=== PATIENT | male | born 1995 | race Caucasian/White ===

== ENCOUNTER 2020-09-07 15:49 | Outpatient (REF) | payer BC, SELFPAY | END 2020-09-07 15:50 | disposition home or self-care (01) | LOC: HO.LAB 15:49 | PROVIDERS: Visit Provider Internal Medicine | DX: Z20.828 Contact with and (suspected) exposure to other viral communicable diseases (principal) | CPT/HCPCS: 36415; C9803; U0003 ==

== ENCOUNTER 2021-05-02 19:43 | Inpatient (IN) | payer BC, SELFPAY ==
--- NOTE | ~2021-05-02 | US_ITS ---
EXAMINATION: US ABDOMEN LIMITED CLINICAL INFORMATION: This is a 26-year-old male with right upper quadrant pain.. COMPARISON: None TECHNIQUE: Real-time imaging of the right upper quadrant abdominal viscera. The study was somewhat limited due to the patient's body habitus and the need to perform intercostal imaging. FINDINGS: PANCREAS: The head and body appear within normal limits without ductal dilatation. The tail is obscured by overlying bowel gas. LIVER: Normal. The liver is normal in size. The liver contour is normal. Parenchymal echogenicity is normal. No focal hepatic lesion. There is no intrahepatic biliary duct dilatation seen. GALLBLADDER: Normal. The gallbladder is physiologically distended without evidence of stones, sludge, polyps or pericholecystic fluid. There is borderline gallbladder wall thickness measuring 0.3 cm. There is no tenderness to direct palpation over the gallbladder. COMMON BILE DUCT: Normal in caliber measuring 0.2 cm in diameter. RIGHT KIDNEY: Normal. There appears to be mild hydronephrosis. No renal calculi or focal parenchymal lesions. The kidney measures 10.5 cm in maximum dimension. FREE FLUID: None. US/US abdomen limited IMPRESSION: 1. Mild right hydronephrosis. 2. Borderline thickening of the gallbladder wall without evidence of tenderness or dilatation of the gallbladder.
--- NOTE | ~2021-05-02 | XR_ITS ---
EXAMINATION: XR CHEST CLINICAL INFORMATION: Upper abdominal pain COMPARISON: None TECHNIQUE: Frontal view of the chest was obtained. FINDINGS: No significant abnormality is noted involving the heart, lungs, mediastinum, bony thorax or soft tissues. XR/XR chest 1V IMPRESSION: Unremarkable examination.
--- NOTE | ~2021-05-02 | CT_ITS ---
EXAMINATION: CT ABDOMEN AND PELVIS WITH CONTRAST CLINICAL INFORMATION: Question pancreatitis COMPARISON: None TECHNIQUE: Multidetector volumetric images were obtained from the superior aspect of the liver through the pubic symphysis following administration 85 mL of Omnipaque 350 intravenous contrast. Sagittal and coronal reformatted images were obtained on the technologist's workstation. Oral contrast: Yes This CT examination was performed using dose optimization techniques as appropriate, variously including the following: *Automated exposure control *Adjustment of mA and/or kV according to patient size (this includes techniques or standardized protocols for targeted exams where dose is matched to indication/reason for exam; i.e. extremities or head) *Use of iterative reconstruction technique DLP: 555 mGy-cm FINDINGS: LUNG BASES: The visualized lung bases are unremarkable. LIVER, GALLBLADDER, AND BILIARY TREE: The liver is normal in size, shape, and attenuation. No focal hepatic lesion or biliary ductal dilatation is present. The gallbladder is unremarkable with no evidence of radiopaque gallstones, gallbladder wall thickening, or obvious pericholecystic inflammatory changes. PANCREAS: Unremarkable. SPLEEN: Unremarkable. ADRENAL GLANDS: Unremarkable. KIDNEYS AND URETERS: The kidneys are normal in size, shape, and attenuation. No hydronephrosis, hydroureter, or calculi seen. No perinephric stranding. BLADDER: Unremarkable. GASTROINTESTINAL TRACT: There is diverticulosis of the colon. No evidence of diverticulitis is seen. The small and large bowel are otherwise unremarkable. The appendix is unremarkable. ABDOMINAL WALL: No significant hernia is appreciated. LYMPH NODES: There are enlarged small bowel mesentery lymph nodes in the right lower quadrant. Largest lymph node measures 2 x 1.7 cm axial image 53 series 3. No other lymphadenopathy is seen. There is no ascites. VASCULAR: Unremarkable. PELVIC VISCERA: Unremarkable. OSSEOUS STRUCTURES: Unremarkable. CT/CT abdomen pelvis w con IMPRESSION: Normal-appearing pancreas. Diverticulosis of the colon. No evidence of diverticulitis. Enlarged small bowel mesentery lymph nodes in the right lower quadrant. Infectious, inflammatory and neoplastic process should be considered.
--- NOTE | ~2021-05-02 | NM_ITS ---
Indication: Abdominal pain mild gallbladder wall thickening EXAMINATION: HIDA scan Ensure is not given.. 5 mCi technetium mebrofenin. Images obtained over the upper abdomen for 85 minutes. Uptake by liver is within normal limits. There is some retention in the liver on the delayed imaging. There is ductal activity by 19 minutes. Bowel activity by 30 minutes. Gallbladder activity by 50 minutes. Impression; Gallbladder visualization is seen by 50 minutes. Therefore no scintigraphic evidence for cystic duct obstruction There is some retention of the agent in the liver on the delayed imaging. An element of hepatocellular dysfunction cannot be excluded
[2021-05-02 20:00] VITALS: BP 159/78; PULSE 86; RESP 16; TEMP 36.7; O2SAT 98; BMI 33.2
--- NOTE | 2021-05-02 21:09 | ED.ABDPAIN ---
HPI - Abdominal Pain General Chief Complaint: Abdominal Pain Stated Complaint: upper abd pain Time Seen by Provider: 05/02/21 22:59 Source: patient Mode of arrival: ambulatory Limitations: no limitations History of Present Illness HPI narrative: 26-year-old male with no significant past medical history presents with 4 days of severe abdominal pain to the left upper quadrant radiating to the epigastric and right upper quadrant to the mid of his back accompanied with nausea. He does report binge drinking approximately 4 days ago, had 6 or more drinks for several days in a row. He does not report any alcohol withdrawal symptoms, and denies illicit drug use. Does not report any medical conditions, denies diabetes, heart disease, and hyperlipidemia. Patient denies chest pain or pressure, palpitations, shortness breath, abdominal distention, dysuria, hematuria, diarrhea, constipation, and edema. MD elicited complaint: abdominal pain Pertinent past history: none Onset (ago): day(s) (4) Pain Consistency: constant Location: epigastric, LUQ and RUQ Severity: severe Pain scale (0-10): 9 Quality: stabbing and aching Radiation: back Exacerbating factors: eating and movement Relieving factors: other (Pepto) Associated symptoms: nausea Treatments prior to arrival: antacids Related Data Home Medications Medication Instructions Recorded Confirmed No Known Home Meds 05/02/21 05/02/21 Allergies Allergy/AdvReac Type Severity Reaction Status Date / Time No Known Allergies Allergy Verified 05/02/21 23:11 [No Known Allergies*] Review of Systems Review of Systems Constitutional: No Weight loss, No Fever, No Chills, No Night Sweats, No Fatigue, No Malaise ENT/Mouth: No Hearing loss, No Ear Pain, No Nasal Congestion, No Sinus Pain, No Hoarseness, No sore throat, No Rhinorrhea, No Swallowing Difficulty Eyes: No Eye Pain, No Swelling, No Redness, No Foreign Body, No Discharge, No Vision Changes Cardiovascular: No Chest Pain, No SOB, No Dyspnea on Exertion, No Orthopnea, No Edema, No Palpitations Respiratory: No Cough, No Sputum, No Wheezing, No Smoke Exposure, No Dyspnea Gastrointestinal: Positive Nausea, no Vomiting, no Diarrhea, positive abdominal Pain, No Hematochezia, No Melena Genitourinary: no irregular bleeding, No Dysuria, No Urinary Frequency, No Hematuria, No Urinary Incontinence, No Urgency, No Flank Pain, No Urinary Flow Changes, No Hesitancy Musculoskeletal: No joint pain, No Myalgias, No Joint Swelling Skin: No Skin Lesions, No rash Neuro: No Weakness, No Numbness, No Paresthesias, No Loss of Consciousness, No Dizziness, No Headache Psych: No Anxiety/Panic, No Depression, No SI/HI/AH/VH, No Social Issues Heme/Lymph: No Bruising, No Bleeding,No Lymphadenopathy Endocrine: No Polyuria, No Polydipsia, No Temperature Intolerance Yes all other systems are reviewed and are negative Physical Exam Vital Signs: Vital Signs: Last Vital Signs Temp 98.1 F 05/02/21 23:37 Pulse 76 05/02/21 23:37 Resp 15 05/03/21 00:06 BP 139/81 05/02/21 23:37 Pulse Ox 98 05/02/21 23:37 Body Mass Index 33.2 Appearance: Alert. Oriented X3. Moderate distress. Eyes: Pupils equal, round and reactive to light. Sclera nonicteric. ENT: Pharynx normal. Moist mucous membranes. Neck: Normal inspection. Neck supple. No cervical lymphadenopathy. CVS: Normal heart rate and rhythm. Pulses normal. Respiratory: No respiratory distress. Breath sounds normal. Abdomen: Soft and tender to the left upper quadrant, epigastric and right upper quadrant, greater on the left than the right. Skin: Skin warm and dry. Normal skin color. Normal skin turgor. Extremities: No lower extremity edema. Gait well balanced well coordinated. Moves all extremities against resistance. Neuro: No motor deficit. No sensory deficit. Cranial nerves 2-12 intact. Course Course Course Narrative: 26-year-old male presents with 4 days of left upper epigastric and right upper quadrant abdominal pain radiating to the midback. Does report some binge drinking prior to the pain. Pain increases with food, gets better with Pepto. Does not report any fevers or chills, physical exam positive for [place] sign, will order abdominal ultrasound, labs. Patient will be NPO. Will give pain management, Zofran, and fluid resuscitation. 10:30 p.m. labs indicate pancreatitis, suspected to be alcohol induced. Discussion with patient regarding plan for admission. Discussed with hospitalist who agrees to admit. Consultations Consultation #1: luca Time: 22:35 [facility] - Abdominal Pain Differential Diagnosis Differential diagnosis: Likely abdominal pain, acute appendicitis, gastroenteritis, gastritis and pancreatitis Medical Records Attestation: I reviewed the patient's medical records. Lab Data Attestation: I reviewed the patient's lab results. Result diagrams: 05/02/21 21:33 05/02/21 21:33 Labs: Lab Results 05/02/21 05/02/21 Range/Units 21:33 21:33 WBC 14.1 H (4.8-10.8) X10*3/uL RBC 5.02 (4.60-5.80) X10*6/uL Hgb 15.5 (14.0-18.0) g/dl Hct 42.6 (42-52) % MCV 84.9 (80-98) fL MCH 30.9 (27.0-33.0) pg MCHC 36.4 H (31.0-36.0) g/dl RDW 11.6 (11.0-16.0) % Plt Count 244 (160-400) X10*3/uL MPV 10.0 (9.4-12.4) fL Immature Gran % (Auto) 0.3 (0.0-0.4) % Neut % (Auto) 76.0 H (45-73) % Lymph % (Auto) 11.6 L (20-40) % [place] % (Auto) 9.9 (2-11) % Eos % (Auto) 1.9 (0-4) % Baso % (Auto) 0.3 (0-2) % Lymph # (Auto) 1.6 (1.2-4.9) X10*3/uL [place] # (Auto) 1.4 H (0.1-1.2) X10*3/uL Eos # (Auto) 0.3 (0.0-0.4) X10*3/uL Baso # (Auto) 0.0 (0.0-0.2) X10*3/uL Abs Immat Gran (auto) 0.04 H (0.00-0.03) X10*3/uL Absolute Neuts (auto) 10.7 H (2.0-8.3) X10*3/uL Absolute Nucleated RBC 0.000 (0.0-0.012) X10*3/uL Nucleated RBC % (auto) 0.0 (0.0-0.2) /100WBC Sodium 138 (135-145) mmol/L Potassium 3.7 (3.3-5.1) mmol/L Chloride 103 (96-108) mmol/L Carbon Dioxide 25 (22-29) mmol/L Anion Gap 14 (12-20) BUN 5 L (9-16) mg/dL Creatinine 0.79 (0.5-1.4) mg/dL Estim Creat Clear Calc 163.9 Estimated GFR > 60 Random Glucose 101 (60-115) mg/dL Calcium 9.6 (8.4-10.2) mg/dL Total Bilirubin 0.6 (0.0-1.0) mg/dL Direct Bilirubin 0.2 (0.0-0.5) mg/dL AST 17 (5-37) U/L ALT 28 (0-40) U/L Alkaline Phosphatase 115 (39-117) U/L Total Protein 7.5 (6.5-8.0) g/dL Albumin 4.5 (3.5-5.0) g/dL Triglycerides 87 mg/dL Lipase 1288 H (8-78) U/L Imaging Data Abdominal ultrasound: Attestation: I personally reviewed and interpreted this imaging study as follows: Radiologist's impression: EXAMINATION: US ABDOMEN LIMITED CLINICAL INFORMATION: This is a 26-year-old male with right upper quadrant pain.. COMPARISON: None TECHNIQUE: Real-time imaging of the right upper quadrant abdominal viscera. The study was somewhat limited due to the patient's body habitus and the need to perform intercostal imaging. FINDINGS: PANCREAS: The head and body appear within normal limits without ductal dilatation. The tail is obscured by overlying bowel gas. LIVER: Normal. The liver is normal in size. The liver contour is normal. Parenchymal echogenicity is normal. No focal hepatic lesion. There is no intrahepatic biliary duct dilatation seen. GALLBLADDER: Normal. The gallbladder is physiologically distended without evidence of stones, sludge, polyps or pericholecystic fluid. There is borderline gallbladder wall thickness measuring 0.3 cm. There is no tenderness to direct palpation over the gallbladder. COMMON BILE DUCT: Normal in caliber measuring 0.2 cm in diameter. RIGHT KIDNEY: Normal. There appears to be mild hydronephrosis. No renal calculi or focal parenchymal lesions. The kidney measures 10.5 cm in maximum dimension. FREE FLUID: None. US/US abdomen limited IMPRESSION: ? 1. Mild right hydronephrosis. ? ? 2. Borderline thickening of the gallbladder wall without evidence of tenderness or dilatation of the gallbladder. Chest x-ray: Attestation: I personally reviewed and interpreted this imaging study as follows: Radiologist's impression: EXAMINATION: XR CHEST CLINICAL INFORMATION: Upper abdominal pain COMPARISON: None TECHNIQUE: Frontal view of the chest was obtained. FINDINGS: No significant abnormality is noted involving the heart, lungs, mediastinum, bony thorax or soft tissues. XR/XR chest 1V IMPRESSION: Unremarkable examination. ECG Data Attestation: I personally reviewed and interpreted this ECG as follows: ECG interpretation date: 05/02/21 ECG interpretation time: 21:11 Prior ECG tracings: available for review Interpretation: Vent. Rate : 070 BPM ? ? Atrial Rate : 070 BPM ?? P-R Int : 144 ms? QRS Dur : 100 ms ? ? QT Int : 386 ms ? ? ? P-R-T Axes : 041 047 016 degrees ?? QTc Int : 416 ms ? Normal sinus rhythm with sinus arrhythmia Normal ECG When compared with ECG of 21-AUG-2009 10:09, T wave amplitude has decreased in Anterior leads Critical Care Time Critical Care Time Critical Care Time: Yes Total Critical Care Time: 45 Attestation: I have personally provided critical care time exclusive of time spent on separately billable procedures. Time includes review of laboratory data, radiology results, discussion with consultants, and monitoring for potential decompensation. Interventions were performed as documented. Discharge Plan Discharge Clinical Impression: Pancreatitis Qualifiers: Chronicity: acute Pancreatitis type: alcohol induced Acute pancreatitis complication: unspecified Qualified Code(s): K85.20 - Alcohol induced acute pancreatitis without necrosis or infection Patient Disposition: Admitted As Inpatient [facility] Past Medical History Attestation statement: The following information was validated with the patient. Source: old records reviewed Medical History (Updated 05/02/21 @ 22:36 by Mary Morrow NP) Kidney failure, acute Vertigo Social History Social History Alcohol intake: current Alcohol intake frequency: a few times a week Alcohol type: beer Patient Tobacco Use Status: Never used Tobacco Use of substances other than those prescribed or required for medical reasons: Yes Substance Use Type: Marijuana Advance Directives: No
--- NOTE | 2021-05-02 21:11 | ECG_ITS ---
Test Reason : ABDOMINAL PAIN Blood Pressure : / mmHG Vent. Rate : 070 BPM Atrial Rate : 070 BPM P-R Int : 144 ms QRS Dur : 100 ms QT Int : 386 ms P-R-T Axes : 041 047 016 degrees QTc Int : 416 ms Normal sinus rhythm with sinus arrhythmia Normal ECG When compared with ECG of 21-AUG-2009 10:09, T wave amplitude has decreased in Anterior leads Referred By: Mary Morrow Electronically Signed By:ISIDRO GOULD
[2021-05-02 21:39] LABS: MANUAL DIFF FLAG NO
[2021-05-02 21:40] LABS: Basophils Percent Auto 0.3 % (0-2); Eosinophils Absolute Auto 0.3 X10*3/uL (0.0-0.4); Eosinophils Percent Auto 1.9 % (0-4); Hematocrit 42.6 % (42-52); Hemoglobin 15.5 g/dl (14.0-18.0); Imm Gran Abs Auto 0.04 X10*3/uL (0.00-0.03); Imm Gran Pct Auto 0.3 % (0.0-0.4); Lymphocytes Absolute Auto 1.6 X10*3/uL (1.2-4.9); Lymphocytes Percent Auto 11.6 % (20-40); Mean Corpuscular HGB Conc 36.4 g/dl (31.0-36.0); Mean Corpuscular Hemoglobin 30.9 pg (27.0-33.0); Mean Corpuscular Volume 84.9 fL (80-98); Monocytes Absolute Auto 1.4 X10*3/uL (0.1-1.2); Monocytes Percent Auto 9.9 % (2-11); Neutrophils Absolute Auto 10.7 X10*3/uL (2.0-8.3); Platelet Count 244 X10*3/uL (160-400); Red Blood Count 5.02 X10*6/uL (4.60-5.80); Red Cell Distribution Width 11.6 % (11.0-16.0); White Blood Count 14.1 X10*3/uL (4.8-10.8)
[2021-05-02 22:08] LABS: Alanine Aminotransferase 28 U/L (0-40); Albumin Level 4.5 g/dL (3.5-5.0); Alkaline Phosphatase 115 U/L (39-117); Anion Gap 14 (12-20); Aspartate Amino Transferase 17 U/L (5-37); Bilirubin Direct 0.2 mg/dL (0.0-0.5); Bilirubin Total 0.6 mg/dL (0.0-1.0); Blood Urea Nitrogen 5 mg/dL (9-16); Calcium 9.6 mg/dL (8.4-10.2); Carbon Dioxide 25 mmol/L (22-29); Chloride 103 mmol/L (96-108); Creatinine Clr Calc Pharmacy 163.9; Estimated Glomerular Filt Rate > 60; Glucose Random 101 mg/dL (60-115); Potassium 3.7 mmol/L (3.3-5.1); Sodium 138 mmol/L (135-145); Total Protein 7.5 g/dL (6.5-8.0)
[2021-05-02 22:21] LABS: Lipase 1288 U/L (8-78)
--- NOTE | 2021-05-02 22:37 | PM.IMHP ---
History of Present Illness Date of Service: 05/02/21 Chief Complaint: Abdominal pain 26-year-old male with a past medical history of alcohol abuse presented to the hospital with a chief complaint of abdominal pain. Patient reported that over the past 4 days has been having abdominal pain located in the epigastrium and the right-sided; radiating to the back; denies any fever chills cough. Assessment with nausea and vomiting. Denies any blood in the vomitus. Denies any diarrhea. Denies any chest pain palpitations lightheadedness or dizziness. Review of all other systems is negative except mentioned above ER course: Per ER team patient's exam noted to have tenderness in the epigastric; no guarding no rigidity. Abdominal ultrasound showed mild gallbladder wall thickening; no fever. Noted to have mild leukocytosis. Lipase elevated to 1000. Given IV fluids and pain medications. Admitted to the hospital for possible pancreatitis. [facility] Medical History (Updated 05/02/21 @ 22:36 by Mary Morrow NP) Kidney failure, acute Vertigo Social History Alcohol intake: current Alcohol intake frequency: a few times a week Alcohol type: beer Patient Tobacco Use Status: Never used Tobacco Use of substances other than those prescribed or required for medical reasons: Yes Substance Use Type: Marijuana Advance Directives: No Meds Allergies Allergy/AdvReac Type Severity Reaction Status Date / Time No Known Allergies Allergy Unverified 05/19/20 16:13 [No Known Allergies*] Active Medications: Current Medications Generic Name Dose Route Start Last Admin Trade Name Freq PRN Reason Stop Dose Admin Sodium Chloride 1,000 mls @ 999 mls/hr 05/02/21 22:30 Ns IVCONT 05/02/21 23:30 .Q1H1M [facility] Pharmacy Consult 1 each 05/02/21 22:28 Consult Rx Perform Med Rec MISCELLANE ONCE PRN Consult order Physical Exam Vital Signs and Narrative: Vital Signs: Last Vital Signs Temp 98.1 F 05/02/21 20:00 Pulse 86 05/02/21 20:00 Resp 16 05/02/21 20:00 BP 159/78 H 05/02/21 20:00 Pulse Ox 98 05/02/21 20:00 Body Mass Index 33.2 Gen: Appears be in no acute distress HEENT: NCAT, Moist mucosa. Pulmonary: Vesicular breath sounds, fair air entry CVS: Normal S1-S2 Abdomen: BS+, Soft, tender in epigastrium; no guarding no rigidity. Extremities: Warm well perfused Neuro: Alert and awake. Results Labs CBC and Chem 7: 05/02/21 21:33 05/02/21 21:33 Labs: Laboratory Results - last 24 hr 05/02/21 08 21:33 21:33 MCV 84.9 MCH 30.9 MCHC 36.4 H RDW 11.6 Plt Count 244 MPV 10.0 Immature Gran % (Auto) 0.3 Neut % (Auto) 76.0 H Lymph % (Auto) 11.6 L [place] % (Auto) 9.9 Eos % (Auto) 1.9 Baso % (Auto) 0.3 Lymph # (Auto) 1.6 [place] # (Auto) 1.4 H Eos # (Auto) 0.3 Baso # (Auto) 0.0 Abs Immat Gran (auto) 0.04 H Absolute Neuts (auto) 10.7 H Absolute Nucleated RBC 0.000 Nucleated RBC % (auto) 0.0 Anion Gap 14 Estim Creat Clear Calc 163.9 Estimated GFR > 60 Random Glucose 101 Calcium 9.6 Total Bilirubin 0.6 Direct Bilirubin 0.2 AST 17 ALT 28 Alkaline Phosphatase 115 Total Protein 7.5 Albumin 4.5 Lipase 1288 H Imaging Radiologist's Impressions: Impressions Abdomen Ultrasound 05/02/21 21:10 IMPRESSION: 1. Mild right hydronephrosis. 2. Borderline thickening of the gallbladder wall without evidence of tenderness or dilatation of the gallbladder. Chest X-Ray 05/02/21 21:11 IMPRESSION: Unremarkable examination. Assessment and Plan (1) Pancreatitis: Qualifiers: Acute pancreatitis complication: unspecified Chronicity: acute Pancreatitis type: alcohol induced Qualified Code(s): K85.20 - Alcohol induced acute pancreatitis without necrosis or infection Status: Acute 26-year-old male with a past medical history of alcohol abuse presented to the hospital with a chief complaint of abdominal pain. Noted to have elevated lipase. Admitted for further management. Pancreatitis: Patient does report drinking alcohol. Likely alcohol induced. Triglyceride level pending. Ultrasound showed mild gallbladder wall thickening; liver panel within normal limits. Unclear if the patient had any gallstones that he passed. Patient is afebrile-less likely cholecystitis. But will also obtain a HIDA scan rule out. Supportive care Gastroenterology consult Mild leukocytosis: Likely reactive in the setting of vomiting. Blood pressure is slightly elevated on presentation likely secondary to the pain. Mild right-sided hydronephrosis: Urinalysis pending. Urology consult. Alcohol abuse: Monitor on CIWA DVT prophylaxis: SCD boots Code status: Full code Quality Stroke Does the patient have a stroke diagnosis?: No VTE Prior VTE?: No VTE Risk Level:: Medical - moderate - high VTE Device Contraindication: Treatment Not Indicated VTE Drug Contraindication: Treatment Not Indicated
[2021-05-02 22:41] LABS: Triglycerides 87 mg/dL
[2021-05-02] MEDS: ondansetron HCL 4 MG/2 ML VIAL IVPUSH (22:49)
[2021-05-02] MEDS: 0.9 % Sodium Chloride 1,000 ML 999 ML IVCONT (22:49)
[2021-05-02 23:06] VITALS: RESP 20
[2021-05-02] MEDS: Morphine Sulfate 4 MG/ML CARTRIDGE IVPUSH (23:06)
[2021-05-02 23:07] VITALS: BP 132/74; PULSE 15; RESP 15
[2021-05-02 23:37] VITALS: BP 139/81; PULSE 76; RESP 20; TEMP 36.7; O2SAT 98
[2021-05-02] MEDS: Dextrose 5 % and 0.45 % NaCl 1,000 ML 100 ML IVCONT (23:39)
[2021-05-02 23:42] LABS: Glucose Urine UA NEG (NEG); Leukocyte Esterase Urine NEG (NEG); Nitrite Urine NEG (NEG); Specific Gravity - Urine <= 1.005 (1.005-1.025); Urine Blood NEG (NEG); Urine Ketones 40 MG/DL (NEG); Urine Protein NEG (NEG-TRACE)
[2021-05-02 23:43] LABS: Appearance Urine CLEAR; Color Urine STRAW; UACC Culture Trigger NO
[2021-05-02 23:57] LABS: COVID-19 Test Negative (Negative); IDNOW Serial# 9DD0AD1C
[2021-05-03] VITALS (8 sets, daily range): BP systolic 146–168; BP diastolic 80–93; PULSE 63–80; RESP 15–20; TEMP 36.8–37; O2SAT 97–99; BMI 33.7
[2021-05-03] MEDS: HYDROmorphone HCl 0.5 MG/0.5 ML SYRINGE IVPUSH ×6 (00:06→20:31)
[2021-05-03 06:31] LABS: MANUAL DIFF FLAG NO
[2021-05-03 06:41] LABS: Basophils Percent Auto 0.2 % (0-2); Eosinophils Absolute Auto 0.2 X10*3/uL (0.0-0.4); Eosinophils Percent Auto 1.9 % (0-4); Hematocrit 42.7 % (42-52); Hemoglobin 15.4 g/dl (14.0-18.0); Imm Gran Abs Auto 0.04 X10*3/uL (0.00-0.03); Imm Gran Pct Auto 0.4 % (0.0-0.4); Lymphocytes Absolute Auto 1.1 X10*3/uL (1.2-4.9); Lymphocytes Percent Auto 10.4 % (20-40); Mean Corpuscular HGB Conc 36.1 g/dl (31.0-36.0); Mean Corpuscular Hemoglobin 30.7 pg (27.0-33.0); Mean Corpuscular Volume 85.1 fL (80-98); Mean Platelet Volume 10.3 fL (9.4-12.4); Monocytes Absolute Auto 1.2 X10*3/uL (0.1-1.2); Monocytes Percent Auto 12.1 % (2-11); Neutrophils Absolute Auto 7.6 X10*3/uL (2.0-8.3); Platelet Count 243 X10*3/uL (160-400); Red Blood Count 5.02 X10*6/uL (4.60-5.80); Red Cell Distribution Width 11.6 % (11.0-16.0); White Blood Count 10.1 X10*3/uL (4.8-10.8)
[2021-05-03 07:11] LABS: Anion Gap 16 (12-20); Blood Urea Nitrogen 4 mg/dL (9-16); Calcium 9.1 mg/dL (8.4-10.2); Carbon Dioxide 26 mmol/L (22-29); Chloride 102 mmol/L (96-108); Creatinine Clr Calc Pharmacy 171.8; Estimated Glomerular Filt Rate > 60; Glucose Random 133 mg/dL (60-115); Potassium 3.8 mmol/L (3.3-5.1); Sodium 140 mmol/L (135-145)
[2021-05-03 09:11] LABS: Lipase 786 U/L (8-78)
--- NOTE | 2021-05-03 10:19 | MHC.CM.PN ---
MALE 26 DX PANCREATITIS. He lives with family. He is independent all functional mobility. DP home no services family transport. The pt declined the offer to document a HCP. CM will follow.
--- NOTE | 2021-05-03 10:37 | PC.NURSE ---
Skin assessment completed today. Patient has a scratch to right elbow. No other skin issues noted at this time.
[2021-05-03] MEDS: Dextrose 5 % and 0.45 % NaCl 1,000 ML 100 ML IVCONT (10:43)
--- NOTE | 2021-05-03 14:31 | PC.NURSE ---
Addendum entered by Cherri Frey RN 05/03/21 15:12: 1445: patient returned to room from CT. No complications, patient tolerated procedure well. Pain tolerable at this time, patient stated he will ring when he needs pain meds. Original Note: Assumed care of patient at 1400. Remains NPO. IVfluids infusing. IVP Dilaudid prn for pancreatic pain. Consent obtained for IC contrast to be used in CT scan. Patient off unit to CT at 1430
[2021-05-03] MEDS: iohexoL 350 MG/ML 100 ML INFUS..BTL IV (14:44)
--- NOTE | 2021-05-03 15:04 | P.PNIM_ITS ---
Subjective Subjective Date of Service: 05/03/21 Interval History: drank 6 servings EtOH for 2 nights last weekend; not a daily drinker ongoing moderate epigstric pain, does not want to eat due to nausea Review of Systems Review of Systems: Yes all other systems are reviewed and are negative Physical Exam Vital Signs: Vital Signs: Last Vital Signs Temp 98.5 F 05/03/21 07:41 Pulse 63 05/03/21 07:41 Resp 20 05/03/21 10:12 BP 166/91 H 05/03/21 07:41 Pulse Ox 98 05/03/21 07:41 Body Mass Index 33.7 Gen: in no acute distress HEENT: sclera anicteric, moist mucus membranes Neck: supple Lungs: clear to auscultation bilaterally Heart: regular rate and rhythm, no murmurs Abd: soft, tender epigastrium, no rebound/guarding, no [place] sign Ext: no edema Skin: warm/well-perfused Neuro: alert and oriented x3, no focal findings Psych: appropriate affect Objective Data Current Medications Generic Name Dose Route Start Last Admin Trade Name Macq PRN Reason Stop Dose Admin Hydromorphone HCl 0.5 mg 05/02/21 22:36 05/03/21 13:04 Hydromorphone Hcl 0.5 Mg/0.5 Ml Syringe IVPUSH 0.5 mg Q4H PRN Administration Pain, Severe (Pain Scale 7-10) Protocol Dextrose/Sodium Chloride 1,000 mls @ 100 mls/hr 05/02/21 22:45 05/03/21 10:43 D51/2ns IVCONT 100 mls/hr .Q10H REHANA Administration Melatonin 6 mg 05/02/21 22:36 Melatonin 3 Mg Tablet PO BEDTIME PRN Insomnia Pharmacy Consult 1 each 05/02/21 22:28 Consult Rx Perform Med Rec MISCELLANE ONCE PRN Consult order Senna 17.2 mg 05/02/21 22:36 Sennosides 8.6 Mg Tablet PO BEDTIME PRN Constipation Sodium Chloride 3 ml 05/03/21 00:00 05/03/21 14:57 0.9 % Sodium Chloride Flush 3 Ml Syringe IVFLUSH Not Given QSHIFT REHANA ITS Impressions Abdomen Ultrasound 05/02/21 21:10 IMPRESSION: 1. Mild right hydronephrosis. 2. Borderline thickening of the gallbladder wall without evidence of tenderness or dilatation of the gallbladder. Chest X-Ray 05/02/21 21:11 IMPRESSION: Unremarkable examination. Labs CBC & Chem 7: 05/03/21 05:24 05/03/21 05:24 Labs: Laboratory Results - last 24 hr 05/02/21 05/02/21 05/02/21 21:33 21:33 23:32 MCV 84.9 MCH 30.9 MCHC 36.4 H RDW 11.6 Plt Count 244 MPV 10.0 Immature Gran % (Auto) 0.3 Neut % (Auto) 76.0 H Lymph % (Auto) 11.6 L [place] % (Auto) 9.9 Eos % (Auto) 1.9 Baso % (Auto) 0.3 Lymph # (Auto) 1.6 [place] # (Auto) 1.4 H Eos # (Auto) 0.3 Baso # (Auto) 0.0 Abs Immat Gran (auto) 0.04 H Absolute Neuts (auto) 10.7 H Absolute Nucleated RBC 0.000 Nucleated RBC % (auto) 0.0 Anion Gap 14 Estim Creat Clear Calc 163.9 Estimated GFR > 60 Random Glucose 101 Calcium 9.6 Total Bilirubin 0.6 Direct Bilirubin 0.2 AST 17 ALT 28 Alkaline Phosphatase 115 Total Protein 7.5 Albumin 4.5 Triglycerides 87 Lipase 1288 H Urine Color Urine Appearance Urine pH Ur Specific [place] Urine Protein Urine Glucose (UA) Urine Ketones Urine Blood Urine Nitrite Ur Leukocyte Esterase COVID-19 (HUYEN) Negative COVID-19 Clin Com See Note 05/02/21 05/03/21 05/03/21 23:32 05:24 05:24 MCV 85.1 MCH 30.7 MCHC 36.1 H RDW 11.6 Plt Count 243 MPV 10.3 Immature Gran % (Auto) 0.4 Neut % (Auto) 75.0 H Lymph % (Auto) 10.4 L [place] % (Auto) 12.1 H Eos % (Auto) 1.9 Baso % (Auto) 0.2 Lymph # (Auto) 1.1 L [place] # (Auto) 1.2 Eos # (Auto) 0.2 Baso # (Auto) 0.0 Abs Immat Gran (auto) 0.04 H Absolute Neuts (auto) 7.6 Absolute Nucleated RBC 0.000 Nucleated RBC % (auto) 0.0 Anion Gap 16 Estim Creat Clear Calc 171.8 Estimated GFR > 60 Random Glucose 133 H Calcium 9.1 Total Bilirubin Direct Bilirubin AST ALT Alkaline Phosphatase Total Protein Albumin Triglycerides Lipase Urine Color STRAW Urine Appearance CLEAR Urine pH 6.0 Ur Specific [place] <= 1.005 Urine Protein NEG Urine Glucose (UA) NEG Urine Ketones 40 Urine Blood NEG Urine Nitrite NEG Ur Leukocyte Esterase NEG COVID-19 (HUYEN) COVID-19 Clin Com 05/03/21 08:21 MCV MCH MCHC RDW Plt Count MPV Immature Gran % (Auto) Neut % (Auto) Lymph % (Auto) [place] % (Auto) Eos % (Auto) Baso % (Auto) Lymph # (Auto) [place] # (Auto) Eos # (Auto) Baso # (Auto) Abs Immat Gran (auto) Absolute Neuts (auto) Absolute Nucleated RBC Nucleated RBC % (auto) Anion Gap Estim Creat Clear Calc Estimated GFR Random Glucose Calcium Total Bilirubin Direct Bilirubin AST ALT Alkaline Phosphatase Total Protein Albumin Triglycerides Lipase 786 H Urine Color Urine Appearance Urine pH Ur Specific [place] Urine Protein Urine Glucose (UA) Urine Ketones Urine Blood Urine Nitrite Ur Leukocyte Esterase COVID-19 (HUYEN) COVID-19 Clin Com Assessment and Plan (1) Pancreatitis: Status: Acute Assessment and Plan: hospital d#2 26yo M presenting with elevated lipase + abd pain after binge EtOH intake # suspected acute pancreatitis - TGs normal, no evidence of gallstones; suspect EtOH-induced. CT A/P to confirm. NPO, IV fluids, follow electrolytes, avoid EtOH # mild GB wall thickening - HIDA scan pending # mild R hydronephrosis - etiology? Urology consult # binge EtOH drinking - CARE Team consult, prn CIWA # VTE ppx - SCDs, early ambulation Quality Stroke Does the patient have a stroke diagnosis?: No VTE Prior VTE?: No VTE Risk Level:: Medical - moderate - high VTE Device Contraindication: Treatment Not Indicated VTE Drug Contraindication: Treatment Not Indicated
[2021-05-03] MEDS: Lactated Ringers 1,000 ML 125 ML IVCONT ×2 (15:36→23:15)
[2021-05-03] MEDS: Pantoprazole Sodium 40 MG/10 ML VIAL IVPUSH (16:33)
--- NOTE | 2021-05-03 21:28 | PM.GICN ---
History of Present Illness Data of Consult Service Date: 05/03/21 Requesting physician: Sarah Chavarria Primary Care Provider: None Physician HPI Reason for consult: abdominal pain 26-year-old male with a past medical history of alcohol abuse who I am seeing for assessment of abdominal pain. He presented to the hospital with several days of worsening burning epigastric pain radiating into the back between the shoulder blades with increasing severity of 10/10. Pain was much worse with food, and he has poor appetite along with nausea but no melena, no emesis or rectal bleeding. Denies diarrhea or constipation. just prior to this attack h had been binging for 2 days on beers and vodka. Denies any chest pain palpitations lightheadedness or dizziness. Not on nsaids. Labs with raised WCC and lipase US with Gb wall thickening CT with nml appearing pancreas but lymphadenopathy in the small bowel mesentery. diverticulosis also noted. Review of Systems Review of Systems: Constitutional: No Weight loss, No Fever, No Chills, No Night Sweats, No Fatigue, No Malaise ENT/Mouth: No Hearing loss, No Ear Pain, No Nasal Congestion, No Sinus Pain, No Hoarseness, No sore throat, No Rhinorrhea, No Swallowing Difficulty Eyes: No Eye Pain, No Swelling, No Redness, No Foreign Body, No Discharge, No Vision Changes Cardiovascular: No Chest Pain, No SOB, No Dyspnea on Exertion, No Orthopnea, No Edema, No Palpitations Respiratory: No Cough, No Sputum, No Wheezing, No Smoke Exposure, No Dyspnea Gastrointestinal: Positive Nausea, no Vomiting, no Diarrhea, positive abdominal Pain, No Hematochezia, No Melena Genitourinary: no irregular bleeding, No Dysuria, No Urinary Frequency, No Hematuria, No Urinary Incontinence, No Urgency, No Flank Pain, No Urinary Flow Changes, No Hesitancy Musculoskeletal: No joint pain, No Myalgias, No Joint Swelling Skin: No Skin Lesions, No rash Neuro: No Weakness, No Numbness, No Paresthesias, No Loss of Consciousness, No Dizziness, No Headache Psych: No Anxiety/Panic, No Depression, No SI/HI/AH/VH, No Social Issues Heme/Lymph: No Bruising, No Bleeding,No Lymphadenopathy Endocrine: No Polyuria, No Polydipsia, No Temperature Intolerance Yes all other systems are reviewed and are negative PMFSH Past Medical History Medical History (Updated 05/03/21 @ 21:37 by Thao Cullen MD) Kidney failure, acute Vertigo Social History Social History Household Members: Other Household Members Other:: girlfriend Housing: Apartment Alcohol intake: current Alcohol intake frequency: a few times a week Alcohol type: beer Patient Tobacco Use Status: Never used Tobacco Use of substances other than those prescribed or required for medical reasons: Yes Substance Use Type: Marijuana Substance Use Frequency: Daily Last Used Substance: Hours (ago) Currently Displaying Signs/Symptoms of Drug Intoxication Withdrawal: No Have you been hit, kicked, punched, or otherwise hurt by someone within the past year? If so, by whom?: No Do you feel safe in your current relationship?: Yes Is there a partner from a previous relationship who is making you feel unsafe now?: No Are you made to feel afraid or neglected: No Advance Directives: No Do you have thoughts of harming others: None Do you have a plan to hurt others: No Plan Recently lost weight without trying: No Nutrition Risks: No Nutritional Risk service: No Current occupational status: unemployed Meds Allergies Allergy/AdvReac Type Severity Reaction Status Date / Time No Known Allergies Allergy Verified 05/02/21 23:11 [No Known Allergies*] Active Medications: Current Medications Generic Name Dose Route Start Last Admin Trade Name Freq PRN Reason Stop Dose Admin Hydromorphone HCl 0.5 mg 05/02/21 22:36 05/03/21 17:40 Hydromorphone Hcl 0.5 Mg/0.5 Ml Syringe IVPUSH 0.5 mg Q4H PRN Administration Pain, Severe (Pain Scale 7-10) Protocol Lactated Ringer's 1,000 mls @ 125 mls/hr 05/03/21 15:15 05/03/21 15:36 Lr IVCONT 125 mls/hr .Q8H REHANA Administration Melatonin 6 mg 05/02/21 22:36 Melatonin 3 Mg Tablet PO BEDTIME PRN Insomnia Pantoprazole Sodium 40 mg 05/03/21 15:40 05/03/21 16:33 Pantoprazole Sodium 40 Mg/10 Ml Vial IVPUSH 40 mg DAILY@0630 [facility] Administration Pharmacy Consult 1 each 05/02/21 22:28 Consult Rx Perform Med Rec MISCELLANE ONCE PRN Consult order Senna 17.2 mg 05/02/21 22:36 Sennosides 8.6 Mg Tablet PO BEDTIME PRN Constipation Sodium Chloride 3 ml 05/03/21 00:00 05/03/21 20:32 0.9 % Sodium Chloride Flush 3 Ml Syringe IVFLUSH Not Given QSHIFT [facility] Home Medications Medication Instructions Recorded Confirmed Last Taken Type No Known Home Meds 05/02/21 05/02/21 Unknown History Physical Exam Vital Signs: Vital Signs: Last Vital Signs Temp 98.3 F 05/03/21 15:08 Pulse 80 05/03/21 20:34 Resp 18 05/03/21 20:34 BP 152/80 H 05/03/21 20:34 Pulse Ox 97 05/03/21 15:08 Body Mass Index 33.7 EXAM: GENERAL: The patient is well developed and nontoxic. In pain. VITAL SIGNS:see workflow HEENT: Nonicteric sclerae, PERRLA, EOMI. Oropharynx clear. Moist mucous membranes. Conjunctivae appear well perfused. No thyroid mass. CHEST: Chest wall is nontender. HEART: Regular rate and rhythm without murmurs. LUNGS: Clear to auscultation bilaterally. ABDOMEN: Soft, positive bowel sounds, tender epigastrium with some guarding, no organomegaly.no flank tenderness SKIN: No rash, no excessive bruising, petechiae, or purpura. NEUROLOGIC: Cranial nerves II-XII intact without motor/sensory deficit. psych- appropriate affect MS- nml rom of arms and legs Results Labs CBC & Chem 7: 05/03/21 05:24 05/03/21 05:24 Labs: Short CBC 05/02/21 05/03/21 Range/Units 21:33 05:24 WBC 14.1 H 10.1 (4.8-10.8) X10*3/uL Hgb 15.5 15.4 (14.0-18.0) g/dl Hct 42.6 42.7 (42-52) % Plt Count 244 243 (160-400) X10*3/uL BMP 05/02/21 05/03/21 21:33 05:24 Sodium 138 140 Potassium 3.7 3.8 Chloride 103 102 Carbon Dioxide 25 26 BUN 5 L 4 L Creatinine 0.79 0.76 Calcium 9.6 9.1 Liver Function 05/02/21 Range/Units 21:33 Total Bilirubin 0.6 (0.0-1.0) mg/dL Direct Bilirubin 0.2 (0.0-0.5) mg/dL AST 17 (5-37) U/L ALT 28 (0-40) U/L Alkaline Phosphatase 115 (39-117) U/L Albumin 4.5 (3.5-5.0) g/dL Urine 05/02/21 Range/Units 23:32 Urine Color STRAW Urine Appearance CLEAR Urine pH 6.0 (5.0-8.0) Ur Specific [place] <= 1.005 (1.005-1.025) Urine Protein NEG (NEG-TRACE) MG/DL Urine Glucose (UA) NEG (NEG) MG/DL Assessment and Plan (1) Epigastric abdominal pain: Status: Acute 1/ Epigastric pain with elevated lipase but nml appearing pancreas on imaging, given his severe pain and radiation into the back I would be concerned for a penetrating duodenal ulcer. CT imaging personally reviewed and contracted thickened stomach noted alnong with lymphadenopathy and some hyperattenuation of small bowel, which maybe due to enteritis. WCC however has came down. Lipase elevation is noted but not specific to pancreas and can be seen with PUD, enteritis or other GI pathology. Imaging does not show vascultiis or aortic aneurysm. PLAN: 1/ EGD tomorrow to assess for PUD, r/o celiac sprue 2/ If sx don;t improve then may consider CTe or MRe for further interrogation of small bowel 3/ If clincially improves then would repeat CT imaging in 6-8 weeks to check for resolution of lymphadenopathy. 4/ meantime can give protonix 40 mg OD to see if helps symptoms. Procedures Date of Service Date of Service: 05/03/21
[2021-05-04] VITALS (11 sets, daily range): BP systolic 117–169; BP diastolic 71–98; PULSE 74–103; RESP 15–20; TEMP 36.4–37.3; O2SAT 95–98
[2021-05-04] MEDS: HYDROmorphone HCl 0.5 MG/0.5 ML SYRINGE IVPUSH ×2 (01:18→07:39)
[2021-05-04] MEDS: Pantoprazole Sodium 40 MG/10 ML VIAL IVPUSH (05:46)
[2021-05-04 06:24] LABS: Hematocrit 41.4 % (42-52); Hemoglobin 14.6 g/dl (14.0-18.0); Mean Corpuscular HGB Conc 35.3 g/dl (31.0-36.0); Mean Corpuscular Hemoglobin 29.7 pg (27.0-33.0); Mean Corpuscular Volume 84.3 fL (80-98); Mean Platelet Volume 10.3 fL (9.4-12.4); Platelet Count 238 X10*3/uL (160-400); Red Blood Count 4.91 X10*6/uL (4.60-5.80); Red Cell Distribution Width 11.4 % (11.0-16.0); White Blood Count 8.1 X10*3/uL (4.8-10.8)
[2021-05-04 06:48] LABS: Alanine Aminotransferase 24 U/L (0-40); Albumin Level 4.1 g/dL (3.5-5.0); Alkaline Phosphatase 99 U/L (39-117); Anion Gap 15 (12-20); Aspartate Amino Transferase 15 U/L (5-37); Bilirubin Total 0.9 mg/dL (0.0-1.0); Blood Urea Nitrogen 6 mg/dL (9-16); Calcium 9.2 mg/dL (8.4-10.2); Carbon Dioxide 25 mmol/L (22-29); Chloride 103 mmol/L (96-108); Creatinine Clr Calc Pharmacy 178.8; Estimated Glomerular Filt Rate > 60; Glucose Random 93 mg/dL (60-115); Potassium 3.8 mmol/L (3.3-5.1); Sodium 139 mmol/L (135-145); Total Protein 6.6 g/dL (6.5-8.0)
[2021-05-04] MEDS: Lactated Ringers 1,000 ML 125 ML IVCONT ×2 (07:39→20:15)
--- NOTE | 2021-05-04 11:10 | HO.ANESPROP2 ---
[facility] Active Problems Active Problems: All Active Problems (Updated 05/03/21 @ 21:37 by Thao Cullen MD) Epigastric abdominal pain (Acute) Pancreatitis (Acute) Past Medical History Medical History Kidney failure, acute Vertigo Surgical History History of Problems with Anesthesia: No Social History Social History Household Members: Other Household Members Other:: girlfriend Housing: Apartment Alcohol intake: current Alcohol intake frequency: a few times a week Alcohol type: beer Patient Tobacco Use Status: Never used Tobacco Use of substances other than those prescribed or required for medical reasons: Yes Substance Use Type: Marijuana Substance Use Frequency: Daily Last Used Substance: Hours (ago) Currently Displaying Signs/Symptoms of Drug Intoxication Withdrawal: No Have you been hit, kicked, punched, or otherwise hurt by someone within the past year? If so, by whom?: No Do you feel safe in your current relationship?: Yes Is there a partner from a previous relationship who is making you feel unsafe now?: No Are you made to feel afraid or neglected: No Are you DNR?: No Advance Directives: No Do you have thoughts of harming others: None Do you have a plan to hurt others: No Plan Recently lost weight without trying: No Nutrition Risks: No Nutritional Risk service: No Current occupational status: unemployed Meds Allergies Allergy/AdvReac Type Severity Reaction Status Date / Time No Known Allergies Allergy Verified 05/02/21 23:11 [No Known Allergies*] Active Medications: Current Medications Generic Name Dose Route Start Last Admin Trade Name Freq PRN Reason Stop Dose Admin Hydromorphone HCl 0.5 mg 05/04/21 07:47 Hydromorphone Hcl 2 Mg/Ml Vial IVPUSH Q4H PRN Pain, Severe (Pain Scale 7-10) Protocol Lactated Ringer's 1,000 mls @ 125 mls/hr 05/03/21 15:15 05/04/21 07:39 Lr IVCONT 125 mls/hr .Q8H REHANA Administration Melatonin 6 mg 05/02/21 22:36 Melatonin 3 Mg Tablet PO BEDTIME PRN Insomnia Pantoprazole Sodium 40 mg 05/03/21 15:40 05/04/21 05:46 Pantoprazole Sodium 40 Mg/10 Ml Vial IVPUSH 40 mg DAILY@0630 [facility] Administration Pharmacy Consult 1 each 05/02/21 22:28 Consult Rx Perform Med Rec MISCELLANE ONCE PRN Consult order Senna 17.2 mg 05/02/21 22:36 Sennosides 8.6 Mg Tablet PO BEDTIME PRN Constipation Sodium Chloride 3 ml 05/03/21 00:00 05/04/21 07:30 0.9 % Sodium Chloride Flush 3 Ml Syringe IVFLUSH Not Given QSHIFT [facility] Home Medications Medication Instructions Recorded Confirmed Last Taken Type No Known Home Meds 05/02/21 05/02/21 Unknown History Exam Exam Date and Time: May 04, 2021 1110 Height,Weight and Vital Signs: Height 5 ft 9 in Weight 103.8 kg Last Vital Signs Temp 98.2 F 05/04/21 09:46 Pulse 77 05/04/21 09:46 Resp 15 05/04/21 09:46 BP 146/98 H 05/04/21 09:46 Pulse Ox 96 05/04/21 09:46 Pertinent Lab Results Pertinent Lab Results: Laboratory Tests 05/02/21 05/02/21 05/02/21 21:33 21:33 23:32 WBC 14.1 H RBC 5.02 Hgb 15.5 Hct 42.6 MCV 84.9 MCH 30.9 MCHC 36.4 H RDW 11.6 Plt Count 244 MPV 10.0 Immature Gran % (Auto) 0.3 Neut % (Auto) 76.0 H Lymph % (Auto) 11.6 L [place] % (Auto) 9.9 Eos % (Auto) 1.9 Baso % (Auto) 0.3 Lymph # (Auto) 1.6 [place] # (Auto) 1.4 H Eos # (Auto) 0.3 Baso # (Auto) 0.0 Abs Immat Gran (auto) 0.04 H Absolute Neuts (auto) 10.7 H Absolute Nucleated RBC 0.000 Nucleated RBC % (auto) 0.0 Sodium 138 Potassium 3.7 Chloride 103 Carbon Dioxide 25 Anion Gap 14 BUN 5 L Creatinine 0.79 Estim Creat Clear Calc 163.9 Estimated GFR > 60 Random Glucose 101 Calcium 9.6 Total Bilirubin 0.6 Direct Bilirubin 0.2 AST 17 ALT 28 Alkaline Phosphatase 115 Total Protein 7.5 Albumin 4.5 Triglycerides 87 Lipase 1288 H Urine Color Urine Appearance Urine pH Ur Specific [place] Urine Protein Urine Glucose (UA) Urine Ketones Urine Blood Urine Nitrite Ur Leukocyte Esterase COVID-19 (HUYEN) Negative COVID-19 Clin Com See Note 05/02/21 05/03/21 05/03/21 23:32 05:24 05:24 WBC 10.1 RBC 5.02 Hgb 15.4 Hct 42.7 MCV 85.1 MCH 30.7 MCHC 36.1 H RDW 11.6 Plt Count 243 MPV 10.3 Immature Gran % (Auto) 0.4 Neut % (Auto) 75.0 H Lymph % (Auto) 10.4 L [place] % (Auto) 12.1 H Eos % (Auto) 1.9 Baso % (Auto) 0.2 Lymph # (Auto) 1.1 L [place] # (Auto) 1.2 Eos # (Auto) 0.2 Baso # (Auto) 0.0 Abs Immat Gran (auto) 0.04 H Absolute Neuts (auto) 7.6 Absolute Nucleated RBC 0.000 Nucleated RBC % (auto) 0.0 Sodium 140 Potassium 3.8 Chloride 102 Carbon Dioxide 26 Anion Gap 16 BUN 4 L Creatinine 0.76 Estim Creat Clear Calc 171.8 Estimated GFR > 60 Random Glucose 133 H Calcium 9.1 Total Bilirubin Direct Bilirubin AST ALT Alkaline Phosphatase Total Protein Albumin Triglycerides Lipase Urine Color STRAW Urine Appearance CLEAR Urine pH 6.0 Ur Specific [place] <= 1.005 Urine Protein NEG Urine Glucose (UA) NEG Urine Ketones 40 Urine Blood NEG Urine Nitrite NEG Ur Leukocyte Esterase NEG COVID-19 (HUYEN) COVID-19 Clin Com 05/03/21 05/04/21 05/04/21 08:21 05:33 05:33 WBC 8.1 RBC 4.91 Hgb 14.6 Hct 41.4 L MCV 84.3 MCH 29.7 MCHC 35.3 RDW 11.4 Plt Count 238 MPV 10.3 Immature Gran % (Auto) Neut % (Auto) Lymph % (Auto) [place] % (Auto) Eos % (Auto) Baso % (Auto) Lymph # (Auto) [place] # (Auto) Eos # (Auto) Baso # (Auto) Abs Immat Gran (auto) Absolute Neuts (auto) Absolute Nucleated RBC 0.000 Nucleated RBC % (auto) 0.0 Sodium 139 Potassium 3.8 Chloride 103 Carbon Dioxide 25 Anion Gap 15 BUN 6 L Creatinine 0.73 Estim Creat Clear Calc 178.8 Estimated GFR > 60 Random Glucose 93 Calcium 9.2 Total Bilirubin 0.9 Direct Bilirubin AST 15 ALT 24 Alkaline Phosphatase 99 Total Protein 6.6 Albumin 4.1 Triglycerides Lipase 786 H Urine Color Urine Appearance Urine pH Ur Specific [place] Urine Protein Urine Glucose (UA) Urine Ketones Urine Blood Urine Nitrite Ur Leukocyte Esterase COVID-19 (HUYEN) COVID-19 Clin Com Airway Mallampati Class: II TM Dist: >3cm Neck ROM: Full Loose/Missing/Broken Teeth: No Heart: RRR Lungs: CTA Assessment and Plan Assessment Anesthesia Assessment: Anesthesia Plan Discussed and Chart Reviewed Final Anesthetic Review History of Problems with Anesthesia: No NPO: Yes ASA Class: II Final Preanesthetic Review: Meds/Allgs Chart Reviewed, Consent Obtained/Reviewed and Anes Risks/Benef Reviewed Patient Risk: Low Procedure Risk: Intermediate Anesthetic Plan Anesthetic Plan: MAC: Disposition: Standard PACU
--- NOTE | 2021-05-04 11:15 | MHC.SHP ---
Pre-Procedural Eval Section A Date of Service: 05/04/21 The patient is an INPATIENT: Yes The History & Physical has been completed within 30 days and I have reviewed it.: Yes Section B Chief Complaint: Pancreatitis Allergies: Allergies Allergy/AdvReac Type Severity Reaction Status Date / Time No Known Allergies Allergy Verified 05/02/21 23:11 [No Known Allergies*] Plan Diagnosis/Plan: Unchanged I have reviewed the history and physical and performed a pertinent physical examination on my patient. No changes have occurred unless specified.
--- NOTE | 2021-05-04 11:15 | PM.OP ---
Brief Operative Note Date of Service: 05/04/21 Pre-op diagnosis: abdo pain Post-op diagnosis: same Procedure: see op note Surgeon: Thao Cullen MD Anesthesia: MAC Was an Regional Sales Representative used for this Procedure?: No Estimated blood loss (mL): 0 Condition: stable Disposition: PACU
--- NOTE | 2021-05-04 11:16 | W.PM.OPN ---
Operative Note Operative Note Date of Service: 05/04/21 Narrative: Procedure Description: EGD FLEXIBLE TRANSORAL UPPER GASTROINTESTINAL ENDOSCOPY UPPER ENDOSCOPY Consent: Indications for the procedure and potential complications of bleeding, perforation, reaction to medications and missed diagnosis were discussed with the patient and informed consent was obtained. Instrument: Olympus GIF H 190 J mid size upper endoscope Monitoring: Vital signs and clinical assessment, continuous EKG monitoring, Pulse oximetry, Carbon Dioxide monitoring and blood pressure monitoring were done throughout the procedure. Procedure: The patient was placed in the left lateral decubitis position and pre-procedure medications were administered and a bite block was placed. The endoscope was inserted into the mouth and advanced under direct vision to the third part of duodenum. A careful inspection was made as the upper endoscope was withdrawn including a retroflexed examination of the proximal stomach; Findings and interventions are described below. Findings: Larynx:normal Esophagus: GE junction at 40 cm, diaphragm hiatus at 40 cm, LA grade A esophagitis with few islands of salmon pink tissue, bx taken. Stomach: Patchy gastric erythema. Biopsies were obtained. Grade 2 flap valve on retroflexed examination of the cardia. Duodenum: mild bulbar duodenitis -bx taken Intervention: Biopsies as noted above Impression/Findings: gastritis duodenitis esophagitis PLAN: can cont wt PPI can complete HIDA scan per primary team, but hx is not really fully compatible with cholecystitis, so I have a low suspicion for this
[2021-05-04] MEDS: Acetaminophen 325 MG TABLET 650 MG PO (13:12)
--- NOTE | 2021-05-04 14:54 | P.PNIM_ITS ---
Subjective Subjective Date of Service: 05/04/21 Interval History: EGD done today; minimal esophagitis/gastritis/duodenitis c/o reflux; abd pain improved, wants to try eating Review of Systems Review of Systems: Yes all other systems are reviewed and are negative Physical Exam Vital Signs: Vital Signs: Last Vital Signs Temp 98.2 F 05/04/21 12:29 Pulse 84 05/04/21 12:29 Resp 20 05/04/21 12:29 BP 139/91 H 05/04/21 12:29 Pulse Ox 97 05/04/21 12:29 Body Mass Index 33.7 Gen: in no acute distress HEENT: sclera anicteric, moist mucus membranes Neck: supple Lungs: clear to auscultation bilaterally Heart: regular rate and rhythm, no murmurs Abd: soft, minimal epigastric tenderness, non-distended Ext: no edema Skin: warm/well-perfused Neuro: alert and oriented x3, no focal findings Psych: appropriate affect Objective Data Active Medications Acetaminophen (Acetaminophen 325 Mg Tablet) 650 mg PO Q4H PRN PRN Reason: headache Last Admin: 05/04/21 13:12 Dose: 650 mg Documented by: GARTH Hydromorphone HCl (Hydromorphone Hcl 2 Mg/Ml Vial) 0.5 mg IVPUSH Q4H PRN; Protocol PRN Reason: Pain, Severe (Pain Scale 7-10) Lactated Ringer's (Lr) 1,000 mls @ 125 mls/hr IVCONT .Q8H [facility] Last Admin: 05/04/21 14:25 Dose: Not Given Documented by: GARTH Non-Admin Reason: IV Running Melatonin (Melatonin 3 Mg Tablet) 6 mg PO BEDTIME PRN PRN Reason: Insomnia Pantoprazole Sodium (Pantoprazole Sodium 40 Mg/10 Ml Vial) 40 mg IVPUSH DAILY@0630 [facility] Last Admin: 05/04/21 05:46 Dose: 40 mg Documented by: CHULA Pharmacy Consult (Consult Rx Perform Med Rec) 1 each MISCELLANE ONCE PRN PRN Reason: Consult order Senna (Sennosides 8.6 Mg Tablet) 17.2 mg PO BEDTIME PRN PRN Reason: Constipation Sodium Chloride (0.9 % Sodium Chloride Flush 3 Ml Syringe) 3 ml IVFLUSH QSHIFT [facility] Last Admin: 05/04/21 14:26 Dose: Not Given Documented by: COTEMA Non-Admin Reason: IV Running Labs CBC & Chem 7: 05/04/21 05:33 05/04/21 05:33 Labs: Laboratory Results - last 24 hr 05/04/21 05/04/21 05:33 05:33 MCV 84.3 MCH 29.7 MCHC 35.3 RDW 11.4 Plt Count 238 MPV 10.3 Absolute Nucleated RBC 0.000 Nucleated RBC % (auto) 0.0 Anion Gap 15 Estim Creat Clear Calc 178.8 Estimated GFR > 60 Random Glucose 93 Calcium 9.2 Total Bilirubin 0.9 AST 15 ALT 24 Alkaline Phosphatase 99 Total Protein 6.6 Albumin 4.1 ITS Impressions Abdomen Ultrasound 05/02/21 21:10 IMPRESSION: 1. Mild right hydronephrosis. 2. Borderline thickening of the gallbladder wall without evidence of tenderness or dilatation of the gallbladder. Chest X-Ray 05/02/21 21:11 IMPRESSION: Unremarkable examination. Abdomen/Pelvis CT 05/03/21 14:40 IMPRESSION: Normal-appearing pancreas. Diverticulosis of the colon. No evidence of diverticulitis. Enlarged small bowel mesentery lymph nodes in the right lower quadrant. Infectious, inflammatory and neoplastic process should be considered. Assessment and Plan (1) Pancreatitis: Status: Acute Assessment and Plan: hospital d#3 26yo M presenting with elevated lipase + abd pain after binge EtOH intake # hyperlipasemia - CT not consistent with acute pancreatitis; could be due to gastritis # RLQ small bowel mesentery lymphadenopathy - on CT; unclear etiology; per GI, repeat CT in 6-8 wk # esophagitis/gastritis/duodenitis - EGD today showed: Larynx:normal Esophagus: GE junction at 40? cm, diaphragm hiatus at 40 cm, LA grade A esophagitis with few islands of salmon pink tissue, bx taken. Stomach: Patchy gastric erythema. Biopsies were obtained. Grade 2 flap valve on retroflexed examination of the cardia. Duodenum: mild bulbar duodenitis -bx taken - continue PPI, will need GI outpt follow-up # mild GB wall thickening - HIDA scan pending; doubt # mild R hydronephrosis - etiology? Urology consult. UA bland. no urinary symptoms. # binge EtOH drinking - CARE Team consult, prn CIWA- no signs of withdrawal # VTE ppx - SCDs, early ambulation Quality Stroke Does the patient have a stroke diagnosis?: No VTE Prior VTE?: No VTE Risk Level:: Medical - moderate - high VTE Device Contraindication: Treatment Not Indicated VTE Drug Contraindication: Treatment Not Indicated
--- NOTE | 2021-05-04 15:44 | MHC.RECOVRN ---
26 year old male presented to [facility] ED, ambulatory, on 05/02 due to upper abdominal pain for 4 days radiating to back. Reports it initially started after eating. 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 Upon evaluation, pt reported binge drinking and labs suggested alcohol induced pancreatitis. Pt admitted for further management. T/w met with pt in 453 after consult placed to CARE Team for etoh binge. Pt awake, sitting in bed, bright affect. Pt reports having been on vacation in [place] and consuming more than normal, about 6 drinks maybe on 04/28 and 04/29 (Fri and Sat). Pt reports abdominal pain started on Saturday and continued through Saturday while patient was at work. Pt did not go to work on Saturday due to the pain and came to the ED that evening. Pt states that while in [place], greasy pizza and [place] food were what I thought caused this. ? Pt reports alcohol does not interfere with any aspect of life at this time. Pt states I'll maybe buy a 6 pack on a Saturday and have one or two after work but I can go without drinking. Pt states I don't know why everyone that has come in here so far thinks I'm an alcoholic. ? Pt was open to discussion regarding AUD and concerns of staff, pt verbalizes understanding. Pt aware that if alcohol does begin to interfere, there are multiple supports available.? T/w available as needed. Case discussed with pts RN as well as Radha Garcia APRN.?
[2021-05-04] MEDS: Omeprazole 20 MG CAPSULE.DR PO (17:49)
[2021-05-04] MEDS: Magnesium Hydrox/Alum Hydrox 30 ML ORAL.SUSP PO (17:50)
[2021-05-04] MEDS: HYDROmorphone HCl 2 MG/ML VIAL 0.5 MG IVPUSH (20:29)
[2021-05-05] MEDS: Lactated Ringers 1,000 ML 125 ML IVCONT ×2 (04:14→12:09)
[2021-05-05] MEDS: Omeprazole 20 MG CAPSULE.DR PO (05:46)
[2021-05-05] MEDS: HYDROmorphone HCl 2 MG/ML VIAL 0.5 MG IVPUSH (05:54)
[2021-05-05 07:00] LABS: Hemoglobin 14.2 g/dl (14.0-18.0); Mean Corpuscular HGB Conc 35.5 g/dl (31.0-36.0); Mean Corpuscular Hemoglobin 29.9 pg (27.0-33.0); Mean Corpuscular Volume 84.2 fL (80-98); Mean Platelet Volume 10.5 fL (9.4-12.4); Platelet Count 248 X10*3/uL (160-400); Red Blood Count 4.75 X10*6/uL (4.60-5.80); Red Cell Distribution Width 11.4 % (11.0-16.0); White Blood Count 7.4 X10*3/uL (4.8-10.8)
[2021-05-05 07:37] VITALS: BP 142/84; PULSE 75; RESP 20; TEMP 36.9; O2SAT 97
[2021-05-05] MEDS: 0.9 % Sodium Chloride Flush 3 ML SYRINGE IVFLUSH (07:57)
[2021-05-05 08:10] LABS: Anion Gap 14 (12-20); Blood Urea Nitrogen 6 mg/dL (9-16); Calcium 9.3 mg/dL (8.4-10.2); Carbon Dioxide 27 mmol/L (22-29); Chloride 103 mmol/L (96-108); Estimated Glomerular Filt Rate > 60; Glucose Random 90 mg/dL (60-115); Potassium 3.7 mmol/L (3.3-5.1); Sodium 140 mmol/L (135-145)
--- NOTE | 2021-05-05 08:33 | MHC.CM.PN ---
05/05/21 Male 26 DX Pancreatitis A HCP has been documented. Cpoies have been given to the Pt. A copy is also on the chart. Patient is indepndent. He lives with family. DP home no services with Family transport. CM will follow.
[2021-05-05 11:14] VITALS: BP 145/92; PULSE 76; RESP 20; TEMP 37; O2SAT 96
[2021-05-05 11:29] VITALS: O2SAT 96
[2021-05-05] MEDS: Acetaminophen 325 MG TABLET 650 MG PO (12:06)
--- NOTE | 2021-05-05 12:58 | PM.UROCN ---
History of Present Illness Consult details Consult date: 05/04/21 Narrative: Devon is a male. Admitted to hospital for evaluation of pancreatitis Ultrasound evaluation showed a question of mild hydronephrosis on the right side Initial recommendation was to review as outpatient CT scanning has been obtained which shows no evidence of hydronephrosis CT is more accurate at anatomic scanned than ultrasound Given there is no evidence of hydronephrosis does not need further evaluation Review of Systems Constitutional: Constitutional: Denies chills and Denies fever(s) Cardiovascular: Cardiovascular: Reports no additional cardiovascular complaints and Denies syncope Respiratory: Respiratory: Denies cough Gastrointestinal: Gastrointestinal: Denies abdominal pain and Denies heartburn Genitourinary: Genitourinary: Reports as per HPI and Denies change in libido Neurologic: Denies syncope Psychiatric: Psychiatric: Denies change in libido Endocrine: Endocrine: Denies change in libido [facility] Past Medical History Medical History Kidney failure, acute Vertigo Social History Social History Household Members: Other Household Members Other:: girlfriend Housing: Apartment Alcohol intake: current Alcohol intake frequency: a few times a week Alcohol type: beer Patient Tobacco Use Status: Never used Tobacco Use of substances other than those prescribed or required for medical reasons: Yes Substance Use Type: Marijuana Substance Use Frequency: Daily Last Used Substance: Hours (ago) Currently Displaying Signs/Symptoms of Drug Intoxication Withdrawal: No Have you been hit, kicked, punched, or otherwise hurt by someone within the past year? If so, by whom?: No Do you feel safe in your current relationship?: Yes Is there a partner from a previous relationship who is making you feel unsafe now?: No Are you made to feel afraid or neglected: No Are you DNR?: No Advance Directives: No Do you have thoughts of harming others: None Do you have a plan to hurt others: No Plan Recently lost weight without trying: No Nutrition Risks: No Nutritional Risk service: No Current occupational status: unemployed Meds Allergies Allergy/AdvReac Type Severity Reaction Status Date / Time No Known Allergies Allergy Verified 05/02/21 23:11 [No Known Allergies*] Active Medications: Current Medications Generic Name Dose Route Start Last Admin Trade Name Freq PRN Reason Stop Dose Admin Acetaminophen 650 mg 05/04/21 13:01 05/05/21 12:06 Acetaminophen 325 Mg Tablet PO 650 mg Q4H PRN Administration headache Al Hydroxide/Mg Hydroxide 30 ml 05/04/21 17:26 05/04/21 17:50 Magnesium Hydrox/Alum Hydrox 30 Ml Oral.Susp PO 30 ml Q4H PRN Administration heartburn Hydromorphone HCl 0.5 mg 05/04/21 07:47 05/05/21 05:54 Hydromorphone Hcl 2 Mg/Ml Vial IVPUSH 0.5 mg Q4H PRN Administration Pain, Severe (Pain Scale 7-10) Protocol Lactated Ringer's 1,000 mls @ 125 mls/hr 05/03/21 15:15 05/05/21 12:09 Lr IVCONT 125 mls/hr .Q8H [facility] Administration Melatonin 6 mg 05/02/21 22:36 Melatonin 3 Mg Tablet PO BEDTIME PRN Insomnia Omeprazole 20 mg 05/04/21 17:30 05/05/21 05:46 Omeprazole 20 Mg Capsule. PO 20 mg BID@0630,1630 [facility] Administration Pharmacy Consult 1 each 05/02/21 22:28 Consult Rx Perform Med Rec MISCELLANE ONCE PRN Consult order Senna 17.2 mg 05/02/21 22:36 Sennosides 8.6 Mg Tablet PO BEDTIME PRN Constipation Sodium Chloride 3 ml 05/03/21 00:00 05/05/21 07:57 0.9 % Sodium Chloride Flush 3 Ml Syringe IVFLUSH 3 ml QSHIFT [facility] Administration Home Medications Medication Instructions Recorded Confirmed Last Taken Type No Known Home Meds 05/02/21 05/02/21 Unknown History Physical Exam Vital Signs: Vital Signs: Last Vital Signs Temp 98.6 F 05/05/21 11:14 Pulse 76 05/05/21 11:14 Resp 20 05/05/21 11:14 BP 145/92 H 05/05/21 11:14 Pulse Ox 96 05/05/21 11:29 Body Mass Index 33.7 Const: General: cooperative, healthy appearing, comfortable and no acute distress Orientation/consciousness: patient oriented x3 HENMT: Face and sinus: Yes normal facial exam Mouth: moist mucous membranes Neck: Neck: Yes normal visual inspection, Yes full ROM and Yes trachea midline Chest: Chest palpation & inspection: normal inspection of the chest Resp: Effort & Inspection: normal respiratory effort, able to speak in complete sentences and no respiratory distress GI: Inspection: Yes normal to inspection Back/Spine/Pelvis: Cervical Spine: normal cervical lordosis Thoracic/Lumbar Spine: thoracic and lumbar spine normal to inspection Skin: General skin exam: no rashes or lesions noted Neuro: General: patient oriented x3, gait normal, tone normal and moves all extremities Extrem: General: Yes normal to inspection and Yes capillary refill normal Results Labs Result diagrams: 05/05/21 05:43 05/05/21 05:43 Labs: Abnormal lab results 05/05/21 05/05/21 Range/Units 05:43 05:43 Hct 40.0 L (42-52) % BUN 6 L (9-16) mg/dL Short CBC 05/05/21 Range/Units 05:43 WBC 7.4 (4.8-10.8) X10*3/uL Hgb 14.2 (14.0-18.0) g/dl Hct 40.0 L (42-52) % Plt Count 248 (160-400) X10*3/uL BMP 05/05/21 05:43 Sodium 140 Potassium 3.7 Chloride 103 Carbon Dioxide 27 BUN 6 L Creatinine 0.75 Calcium 9.3 Urine 05/02/21 Range/Units 23:32 Urine Color STRAW Urine Appearance CLEAR Urine pH 6.0 (5.0-8.0) Ur Specific [place] <= 1.005 (1.005-1.025) Urine Protein NEG (NEG-TRACE) MG/DL Urine Glucose (UA) NEG (NEG) MG/DL All other labs normal. Assessment and Plan (1) Hydronephrosis: Status: Acute No need for further evaluation Procedures Date of Service Date of Service: 05/04/21
--- NOTE | 2021-05-05 13:15 | HO.POSTANES ---
Post Anesthesia Evaluation Post Anesthesia Evaluation Vital Signs: Vital Signs Temp Pulse Resp BP Pulse Ox 05/05/21 11:29 96 05/05/21 11:14 98.6 F 76 20 145/92 H 96 05/05/21 07:37 98.4 F 75 20 142/84 H 97 Anesthesia: Monitored Mental Status: Awake Pain Control: Satisfactory Nausea/Vomiting: None Hydration: Adequate Anesthesia-Related Issues: No Anes. Related Issues
--- NOTE | 2021-05-05 13:45 | P.DS_ITS ---
DS: Providers Provider Date of Service: 05/05/21 Date of admission: 05/02/21 22:36 Date of discharge: 05/05/21 Primary care physician: None Physician Consults: 05/02/21 22:35 Consult to Gastroenterology Routine Consulting Provider: Thao Cullen Reason for consultation: pancreatitis 05/02/21 22:44 Consult to Urology Routine Consulting Provider: Armond Cormier Reason for consultation: mild hydronephrosis 05/03/21 15:07 Consult to Care Team Routine Comment: Reason for consultation: binge etoh DS: Diagnosis Discharge Diagnosis (1) Epigastric abdominal pain: Status: Acute (2) Pancreatitis: Status: Acute DS: Summary Hospital Course Hospital Course: 26-year-old male with a past medical history of alcohol abuse presented to the hospital with a chief complaint of abdominal pain.? Patient reported that over the past 4 days has been having abdominal pain located in the epigastrium and the right-sided; radiating to the back; denies any fever chills cough.? Assessment with nausea and vomiting.? Denies any blood in the vomitus.? Denies any diarrhea.? Denies any chest pain palpitations lightheadedness or dizziness. Review of all other systems is negative except mentioned above. Hospital course: 26yo M presenting with elevated lipase + abd pain after binge EtOH intake: Patient found to have hyperlipasemia,CT not consistent with acute pancreatitis; could be due to gastritis Initially started on bowel rest, PPIs, subsequently had CT abdomen as well as EGD which showed: Esophagus: GE junction at 40? cm, diaphragm hiatus at 40 cm, LA grade A esophagitis with few islands of salmon pink tissue, bx taken. Stomach: Patchy gastric erythema. Biopsies were obtained. Grade 2 flap valve on retroflexed examination of the cardia. Duodenum: mild bulbar duodenitis -bx taken. Patient is to follow up outpatient with GI for above and continue PPI for now, also patient was told to avoid aspirin and NSAIDs or blood thinners. RLQ small bowel mesentery lymphadenopathy- on CT; unclear etiology; per GI, repeat CT in 6-8 wk mild GB wall thickening- HIDA scan results reviewed with GI: No seems fine and the GI recomended outpatient Gi follow up. mild R hydronephrosis: Abdominal ultrasound initially showed mild right hydronephrosis but CT scan did not show that, discussed with Urology- urinary symptoms, renal function seems fine,no recomedations. Patient was advised to follow-up with his PCP in [place] 1 week and also follow up with Dr. Mike WOODY out patiently for above. Above management discussed with the patient in detail length he understand and in agreement with the above plan, time spent 50 minutes and 50% time spent on counseling. Significant findings: As above. Procedures performed: None. Treatment and response: As above. Complications: None. He needs Time Spent with Patient Time attestation: Total time spent providing and/or coordinating discharge services: Discharge coordination time: Greater than 30 minutes Quality: Stroke Does the patient have a stroke diagnosis?: No Physical Exam Vital Signs: Vital Signs: Last Vital Signs Temp 98.6 F 05/05/21 11:14 Pulse 76 05/05/21 11:14 Resp 20 05/05/21 11:14 BP 145/92 H 05/05/21 11:14 Pulse Ox 96 05/05/21 11:29 Body Mass Index 33.7 Gen: in no acute distress HEENT: sclera anicteric, moist mucus membranes Neck: supple Lungs: clear to auscultation bilaterally Heart: regular rate and rhythm, no murmurs Abd: soft, tender epigastrium, no rebound/guarding, no [place] sign Ext: no edema Skin: warm/well-perfused Neuro: alert and oriented x3, no focal findings Psych: appropriate affect DS: Data Data Completed and Pending Pending studies at discharge: Pending at discharge 05/04/21 11:42 Surgical [PTH] Routine Labs on day of discharge: Laboratory Results - last 24 hr 05/05/21 05/05/21 05:43 05:43 WBC 7.4 RBC 4.75 Hgb 14.2 Hct 40.0 L MCV 84.2 MCH 29.9 MCHC 35.5 RDW 11.4 Plt Count 248 MPV 10.5 Absolute Nucleated RBC 0.000 Nucleated RBC % (auto) 0.0 Sodium 140 Potassium 3.7 Chloride 103 Carbon Dioxide 27 Anion Gap 14 BUN 6 L Creatinine 0.75 Estim Creat Clear Calc 174.0 Estimated GFR > 60 Random Glucose 90 Calcium 9.3 Discharge Plan Discharge Patient Disposition: Home, Self-Care Discharge Diagnosis: abd pain-gastritis Referrals: Thao Cullen MD [Physician] - 1 Week (fu with GI in 1-2 weeks) Physician,None [Primary Care Provider] - 1 Week Discharge Medications: New omeprazole magnesium 20 mg tablet,delayed release (DR/EC) 20 mg PO DAILY Qty: 30 RF: 0 No Action No Known Home Meds RF: 0 Discharge Orders: Discharge Order (Routine); Ordered 05/05/21 Ordered By: Dario Griffin Diet: advance to usual diet Activity on Discharge: As tolerated Stand Alone Forms: Patient Portal Discharge page Care Plan Goals: Patient came with the abdominal pain: Initially started on bowel rest, fluids and thought to be possible pancreatitis due to elevated lipase. CT abdomen did not show the evidence of pancreatitis. Per subsequently patient had EGD done and found to have ease of diabetes and gastritis: GI recommended to continue PPIs on discharge. Also patient is to follow up with GI due to above and f ollow-up for biopsy results. CT abdomen also shows lymphadenopathy: GI recommended outpatient follow-up in next 6-8 weeks to see resolution of findings. Mild Right hydronephrosis: Initial ultrasound showsMild Right hydronephrosis- subsequent CT abdomen does not show any evidence of hydronephrosis. Discussed with Urology no current workup recommended follow-up with Urology outpatient. Health Concerns: As above. Plan of Treatment: As above. Assessment: As above. Patient Instructions: Pancreatitis (ED)
--- NOTE | 2021-05-05 13:48 | MHC.CM.PN ---
Patient has been medically cleared for dc to home today, no services.
[2021-05-05 15:24] VITALS: BP 126/80; PULSE 68; RESP 15; TEMP 36.6; O2SAT 96
== END 2021-05-05 15:50 | disposition home or self-care (01) | DRG 241 ==
LOC: HO.ED 22:36 → HO.IMC 05-03 00:18
PROVIDERS: Family Medicine; Internal Medicine Gastroenterology; Nurse Practitioner Family; Admitting Provider Hospitalist; Emergency Provider Internal Medicine; Visit Provider Internal Medicine
PROC: 0DJ08ZZ Inspection of Upper Intestinal Tract, Via Natural or Artificial Opening Endoscopic (ICD-10-PCS; CPT 43235; principal; 2021-05-04 11:50)
DX: K29.70 Gastritis, unspecified, without bleeding (principal); D72.829 Elevated white blood cell count, unspecified; F10.10 Alcohol abuse, uncomplicated; K20.90 Esophagitis, unspecified without bleeding; K29.80 Duodenitis without bleeding; Z20.822 Contact with and (suspected) exposure to COVID-19; Z79.899 Other long term (current) drug therapy
CPT/HCPCS: 36415; 71045; 74177; 76705; 78226; 80048; 80053; 80076; 81003; 83690; 84478; 85025; 85027; 87635; 88305; 88342; 93005; 96361; 96372; 96374; 96375; 99285; 99291; A9537; J1170; J2270; J2405; J3010; Q9967